=== PATIENT | female | born 1980 | race Two or more races ===

== ENCOUNTER 2016-11-15 10:33 | Emergency (ER) | payer MEDICAID ==
[2016-11-15] MEDS ORDERED: IBUPROFEN 800 MG TABLET PO STA (11:27)
[2016-11-15] MEDS ORDERED: ACETAMINOPHEN 325 MG TABLET PO STA (11:32)
[2016-11-15] MEDS ORDERED: ACETAMINOPHEN 325 MG TABLET PO ONE (11:42)
[2016-11-15] MEDS ORDERED: SUMAtriptan 6 MG/0.5 ML VIAL SUBQ STA (13:16)
[2016-11-15] MEDS ORDERED: SUMAtriptan 6 MG/0.5 ML VIAL SUBQ ONE (13:19)
== END 2016-11-15 13:45 | disposition home or self-care (01) ==
DX: S09.90XA Unspecified injury of head, initial encounter (principal); W01.198A Fall on same level from slipping, tripping and stumbling with subsequent striking against other object, initial encounter; J32.3 Chronic sphenoidal sinusitis; Z87.11 Personal history of peptic ulcer disease; Z87.42 Personal history of other diseases of the female genital tract; F17.200 Nicotine dependence, unspecified, uncomplicated
CPT/HCPCS: 70450; 72125; 96372; 99283; 99284; A9270

== ENCOUNTER 2016-12-24 09:29 | Emergency (ER) | payer MEDICAID ==
[2016-12-24] MEDS ORDERED: ACETAMINOPHEN 325 MG TABLET PO STA (11:07)
[2016-12-24] MEDS ORDERED: traMADol 50 MG TABLET PO STA (11:07)
[2016-12-24] MEDS ORDERED: traMADol 50 MG TABLET PO ONE (11:10)
[2016-12-24] MEDS ORDERED: ACETAMINOPHEN 325 MG TABLET PO ONE (11:10)
[2016-12-24] MEDS ORDERED: PHENAZOPYRIDINE 100 MG TABLET PO STA (12:46)
[2016-12-24] MEDS ORDERED: SULFAMETH/TRIMETH DS 800/160 MG TABLET PO STA (12:46)
[2016-12-24] MEDS ORDERED: SULFAMETH/TRIMETH DS 800/160 MG TABLET PO ONE (12:51)
[2016-12-24] MEDS ORDERED: PHENAZOPYRIDINE 100 MG TABLET PO ONE (12:51)
== END 2016-12-24 12:57 | disposition home or self-care (01) ==
DX: N34.2 Other urethritis (principal); F17.200 Nicotine dependence, unspecified, uncomplicated
CPT/HCPCS: 51798; 81001; 81025; 87210; 87491; 87591; 99283; A9270

== ENCOUNTER 2017-01-03 19:44 | Outpatient (CLI) | payer MEDICAID ==
--- NOTE | 2017-01-04 10:24 | Ultrasound Report ---
PELVIC ULTRASOUND: 01/03/2017 CLINICAL INDICATION: Abnormal vaginal bleeding. TECHNIQUE: Transabdominal pelvic ultrasound performed for global evaluation. Transvaginal pelvic ul trasound performed for detailed evaluation. Real-time scanning performed and static images obtained. FINDINGS: The patient is status post hysterectomy. The ovaries appear unremarkable, with the right measuring 3.1 x 2.8 x 2.5 cm and the left measuring 3.4 x 2.8 x 2.4 cm. No free fluid is present. T he cervix appears unremarkable. IMPRESSION: CHANGES OF PARTIAL HYSTERECTOMY. NO FREE FLUID OR ADNEXAL MASS. UNREMARKABLE APPEARANC E OF THE CERVIX. JOB #: [id number] EXT JOB #:[id number]
--- NOTE | 2017-01-20 23:41 | Ultrasound Preliminary Report ---
Exam: US Pelvic w/Transvaginal IMPRESSION: 1. Uterus is surgically absent. Cervix is seen. 2. Mildly enlarged ovaries measuring 17.7 cc on the right and 21.5 cc on the left. No torsion seen. 3. Small left ovarian cyst measuring 2.5 x 1.7 x 1.2 cm. 4. Small amount of free fluid in the pelvis. [facility] SITE ID: [id number]
== END 2017-01-03 19:45 | disposition home or self-care (01) ==
LOC: DI 19:44
PROVIDERS: ATTEND Nurse Practitioner Gerontology
DX: N93.9 Abnormal uterine and vaginal bleeding, unspecified (principal); R10.30 Lower abdominal pain, unspecified; Z90.710 Acquired absence of both cervix and uterus
CPT/HCPCS: 76830; 76856

== ENCOUNTER 2017-01-20 20:33 | Emergency (ER) | payer MEDICAID ==
--- NOTE | 2017-01-20 21:33 | ED Physician Documentation ---
PD HPI ABD PAIN - Stated complaint Stated Complaint: ABD PX - Chief complaint Chief Complaint: Abd Pain - History obtained from History obtained from: Patient - History of Present Illness Timing - onset: How many hours ago (2), Today Timing - duration: Hours (2) Timing - details: Abrupt onset Pain level max: 10 Pain level now: 10 Quality: Pain Location: Suprapubic Radiation: Other (no radiation) Improved by: Laying still Worsened by: Moving, Palpation Associated symptoms: No: Fever, Nausea, Vomiting Similar symptoms before: Other (unclear if associated with previous diagnosis. Patient says she has had similar episodes for over a year now and has seen outpatient doctors both [facility] and [place]rology in [place], ED [facility] and in [place]; her diagnoses have included UTI, ovarian cysts (including ruptured), but she also says some doctors she sees have told her the previous physician's diagnosis was incorrect. She was most recently in this ED earlier this month, diagnosed with UTI, then f/u with PMD. Patient says in follow-up she was told she did not have a UTI.) Recently seen: Clinic, Emergency Dept - Additional information Additional information: patient also was in this ED 2 months ago for unrelated c/o Review of Systems Constitutional: denies: Fever, Chills, Sweats Cardiac: reports: Reviewed and negative Respiratory: reports: Reviewed and negative GI: reports: Abdominal Pain (pelvic pain). denies: Nausea, Vomiting : reports: Dysuria. denies: Frequency Musculoskeletal: denies: Back pain PD PAST MEDICAL HISTORY - Past Medical History Past Medical History: Yes Neuro: Headache/migraine GI: Ulcers DELIVERY STOCK CLERK: Ovarian cysts - Past Surgical History Past Surgical History: Yes /DELIVERY STOCK CLERK: Endometrial ablation, Tubal ligation, Hysterectomy - Present Medications Home Medications: Ambulatory Orders Medication Instructions Recorded Confirmed Phenazopyridine [Pyridium] 200 mg PO TID PRN #15 tablet 12/24/16 Sulfamethox/Trimeth 800/160 1 each PO BID #14 tablet 12/24/16 [Bactrim Ds 800/160] Tramadol HCl 50 mg PO Q6H PRN #15 tablet 12/24/16 - Allergies Allergies/Adverse Reactions: Allergies Allergy/AdvReac Type Severity Reaction Status Date / Time narcotic AdvReac Itching Uncoded 01/20/17 20:37 - Social History Does the pt smoke?: Yes Smoking Status: Current every day smoker Does the pt drink ETOH?: Yes Does the pt have substance abuse?: No - Immunizations Immunizations are current?: Yes - POLST Patient has POLST: No PD ED PE NORMAL - Vitals Vital signs reviewed: Yes - General General: Alert and oriented X 3, No acute distress, Well developed/nourished - Cardiac Cardiac: RRR, No murmur - Respiratory Respiratory: No respiratory distress, Clear bilaterally - Abdomen Abdomen: Soft, Non distended, Other (obese; mild tenderness suprapubic and left pelvic) - Back Back: No CVA TTP - Derm Derm: Normal color Results - Vitals Vitals: Oxygen O2 Source Room air - Labs Labs: Laboratory Tests 01/20/17 01/20/17 01/21/17 21:10 21:10 00:49 WBC 10.2 RBC 4.27 Hgb 11.5 L Hct 35.0 L MCV 82.0 MCH 26.9 L MCHC 32.8 RDW 15.4 H Plt Count 248 MPV 8.8 Neut # 6.3 Lymph # 3.0 [place] # 0.8 Eos # 0.1 Baso # 0.0 Absolute Nucleated RBC 0.00 Nucleated RBCs 0.0 Sodium 138 Potassium 4.2 Chloride 106 Carbon Dioxide 25 Anion Gap 7.0 BUN 13 Creatinine 0.9 Estimated GFR (MDRD) 70 L Glucose 87 Calcium 9.1 Total Bilirubin < 0.2 L AST 19 ALT 24 Alkaline Phosphatase 55 Total Protein 7.3 Albumin 3.9 Globulin 3.4 Albumin/Globulin Ratio 1.1 Lipase 29 Urine Color YELLOW Urine Clarity CLEAR Urine pH 5.5 Ur Specific [place] >=1.030 H Urine Protein NEGATIVE Urine Glucose (UA) NEGATIVE Urine Ketones NEGATIVE Urine Occult Blood TRACE-INTA Urine Nitrite NEGATIVE Urine Bilirubin NEGATIVE Urine Urobilinogen 0.2 (NORMAL) Ur Leukocyte Esterase NEGATIVE Ur Microscopic Review NOT INDICATED Urine Culture Comments NOT INDICATED Urine HCG, Qual 01/21/17 00:49 WBC RBC Hgb Hct MCV MCH MCHC RDW Plt Count MPV Neut # Lymph # [place] # Eos # Baso # Absolute Nucleated RBC Nucleated RBCs Sodium Potassium Chloride Carbon Dioxide Anion Gap BUN Creatinine Estimated GFR (MDRD) Glucose Calcium Total Bilirubin AST ALT Alkaline Phosphatase Total Protein Albumin Globulin Albumin/Globulin Ratio Lipase Urine Color Urine Clarity Urine pH Ur Specific [place] >1.030 Urine Protein Urine Glucose (UA) Urine Ketones Urine Occult Blood Urine Nitrite Urine Bilirubin Urine Urobilinogen Ur Leukocyte Esterase Ur Microscopic Review Urine Culture Comments Urine HCG, Qual NEGATIVE - Rads (name of study) pelvic/TV US Radiology: Prelim report reviewed, See rad report PD MEDICAL DECISION MAKING - ED course Complexity details: reviewed old records, reviewed results, re-evaluated patient , considered differential, d/w patient, d/w family Departure - Departure Disposition: 01 Home, Self Care Clinical Impression: Pelvic pain Condition: Good Instructions: ED Pelvic Pain [facility] Follow-Up: Gabby Brandon ARNP [Primary Care Provider] - (Call to arrange for next available appointment) Discharge Date/Time: 01/21/17 01:38
[2017-01-20] MEDS ORDERED: KETOROLAC 60 MG/2 ML VIAL IVP STA (21:55)
[2017-01-20] MEDS ORDERED: SODIUM CHLORIDE 0.9% 1,000 ML IV STA (21:55)
[2017-01-20] MEDS ORDERED: KETOROLAC 30 MG/ML VIAL ONE (22:02)
[2017-01-20 22:06] LABS: BASOPHILS % (AUTO) 0.2 %; EOSINOPHILS # (AUTO) 0.1 10^3/uL (0.0-0.7); EOSINOPHILS % (AUTO) 0.8 %; HGB - HEMOGLOBIN 11.5 g/dL (12.0-16.0); LYMPHOCYTES % (AUTO) 29.1 %; MEAN CORPUSCULAR HEMOGLOBIN 26.9 pg (27.0-31.0); MEAN CORPUSCULAR HGB CONC 32.8 g/dL (32.0-36.0); MEAN PLATELET VOLUME 8.8 fL (7.9-10.8); MONOCYTES # (AUTO) 0.8 10^3/uL (0.0-1.0); MONOCYTES % (AUTO) 7.5 %; NEUTROPHILS # (AUTO) 6.3 10^3/uL (1.5-6.6); NEUTROPHILS % (AUTO) 62.4 %; RED BLOOD COUNT 4.27 10^6/uL (4.20-5.40); RED CELL DISTRIBUTION WIDTH 15.4 % (12.0-15.0); UNCORRECTED WHITE BLOOD COUNT 10.2 x10^3/uL; WHITE BLOOD COUNT 10.2 x10^3/uL (4.8-10.8)
[2017-01-20 22:14] LABS: ALBUMIN/GLOBULIN RATIO 1.1 (1.0-2.2); BILIRUBIN,TOTAL < 0.2 mg/dL (0.2-1.0); BUN - BLOOD UREA NITROGEN 13 mg/dL (6-20); CALCIUM 9.1 mg/dL (8.5-10.3); CARBON DIOXIDE - CO2 25 mmol/L (21-32); CHLORIDE 106 mmol/L (101-111); CREATININE 0.9 mg/dL (0.4-1.0); GFR - MDRD 70 (>89); GLUCOSE 87 mg/dL (70-100); LIPASE 29 U/L (22-51); POTASSIUM 4.2 mmol/L (3.5-5.0); SODIUM 138 mmol/L (135-145); TOTAL PROTEIN 7.3 g/dL (6.7-8.2)
--- NOTE | 2017-01-20 23:41 | Ultrasound Preliminary Report ---
Exam: US Pel Non OB w/TV + Dop Ltd IMPRESSION: 1. Uterus is surgically absent. Cervix is seen. 2. Mildly enlarged ovaries measuring 17.7 cc on the right and 21.5 cc on the left. No torsion seen. 3. Small left ovarian cyst measuring 2.5 x 1.7 x 1.2 cm. 4. Small amount of free fluid in the pelvis. [facility] SITE ID: [id number]
--- NOTE | 2017-01-20 23:44 | Ultrasound Report ---
EXAM: PELVIC ULTRASOUND EXAM DATE: 01/20/2017 11:13 PM. CLINICAL HISTORY: Pelvic pain. Nausea. History of partial hysterectomy. COMPARISON: 01/03/2017. TECHNIQUE: Realtime transabdominal pelvic scan performed to identify the uterus and adnexa and as an overview of other pelvic structures, followed by transvaginal scan to provide greater detail of the u terus and adnexa, with static image documentation. FINDINGS: Uterus: Surgically absent. Cervix: Nabothian cysts. Right Ovary: 3.2 x 3.4 x 3.2 cm, volume 17.7 cc. Normal echotexture and blood flow. Left Ovary: 4.0 x 2.9 x 3.5 cm, volume 21.5 cc. Blood flow is seen in the ovary. Cyst measuring 2.5 x 1.7 x 1.2 cm. Free Fluid: Small amount. Other: None. IMPRESSION: 1. Uterus is surgically absent. Cervix is seen. 2. Mildly enlarged ovaries measuring 17.7 cc on the right and 21.5 cc on the left. No torsion seen. 3. Small left ovarian cyst measuring 2.5 x 1.7 x 1.2 cm. 4. Small amount of free fluid in the pelvis. [facility] Referring Provider Line: [phone] SITE ID: [id number]
[2017-01-21 00:55] LABS: BILIRUBIN,URINE NEGATIVE (NEGATIVE); PH,URINE 5.5 PH (5.0-7.5)
[2017-01-21 01:01] LABS: UA CHARGE (STRIP ONLY) YES; UR CULTURE IF IND NOT INDICATED
[2017-01-21 01:02] LABS: HCG UR QUAL NEGATIVE
[2017-01-21] MEDS ORDERED: traMADol 50 MG TABLET PO STA (01:28)
[2017-01-21] MEDS ORDERED: traMADol 50 MG TABLET PO ONE (01:31)
[2017-01-21 01:38] VITALS: BP 122/64
== END 2017-01-21 01:38 | disposition home or self-care (01) ==
LOC: ED 20:33
DX: R10.2 Pelvic and perineal pain (principal); E66.9 Obesity, unspecified; F17.200 Nicotine dependence, unspecified, uncomplicated; Z87.42 Personal history of other diseases of the female genital tract; Z90.710 Acquired absence of both cervix and uterus; Z68.43 Body mass index [BMI] 50.0-59.9, adult
CPT/HCPCS: 36415; 76830; 76856; 80053; 81003; 81025; 83690; 85025; 93976; 96361; 96374; 99284; A9270; 81001; 87086

== ENCOUNTER 2017-02-05 10:23 | Outpatient (CLI) | payer MEDICAID | END 2017-02-05 23:59 | disposition home or self-care (01) | LOC: LAB.R 10:23 | PROVIDERS: ATTEND Obstetrics & Gynecology | DX: R10.2 Pelvic and perineal pain (principal) | CPT/HCPCS: 87491; 87591 ==

== ENCOUNTER 2017-03-02 10:23 | Outpatient (CLI) | payer MEDICAID ==
[2017-03-02 20:03] LABS: FOLLICLE STIMULATING HORMONE 5.32 mIU/mL
[2017-03-02 20:04] LABS: LUTEINIZING HORMONE 3.15 mIU/mL
== END 2017-03-02 10:24 | disposition home or self-care (01) ==
LOC: LAB.N 10:23
PROVIDERS: ATTEND Obstetrics & Gynecology
DX: E28.2 Polycystic ovarian syndrome (principal)
CPT/HCPCS: 36415; 82626; 82670; 83001; 83002; 84403